=== PATIENT | female | born 1945 | race Caucasian/White ===

== ENCOUNTER 2017-08-01 15:28 | Observation (INO) | payer MEDICARE ==
[2017-08-01] MEDS ORDERED: SODIUM CHLORIDE 0.9% 500 ML IV STA (15:54)
[2017-08-01] MEDS ORDERED: ASPIRIN 81 MG PO STA (15:54)
--- NOTE | 2017-08-01 15:54 | ED ---
Arrhythmia/Palpitations HPI - General Chief Complaint: Arrhythmia/Palpitations Stated Complaint: Palpitations Time Seen by Provider: 08/01/17 15:45 Source: patient Mode of arrival: wheelchair Limitations: no limitations - History of Present Illness Initial Comments: Patient states that she is having the sensation of a pounding heart, as well as generalized fatigue. Her symptoms have been waxing and waning for a week and a half, however they are becoming more persistent. Patient denies any lightheadedness or dizziness, she does feel diaphoretic however. She has no nausea or vomiting, constipation or diarrhea. She has taken no medication for the symptoms. She was not doing anything when she began to feel this way. She has had no recent long plane or cards. She denies sick contacts. She has no pain or swelling in the calves. - Related Data Home Medications Medication Instructions Recorded Confirmed Albuterol Nebulized [Ventolin 2.5 mg INHALATION RT-DAILY 08/01/17 08/01/17 Nebulized] Ascorbic Acid [Vitamin C] 1,000 mg PO DAILY 08/01/17 08/01/17 Lactobacillus Acidophilus 2 tab PO DAILY 08/01/17 08/01/17 [Acidophilus] Diller-3 Fatty Acids/Fish Oil [Fish 1 cap PO DAILY 08/01/17 08/01/17 Oil 1,000 mg Softgel] Turmeric Root Extract [Turmeric] 500 mg PO DAILY 08/01/17 08/01/17 Vitamin B Complex 1 cap PO Q48H 08/01/17 08/01/17 Vitamin E 1,000 unit PO DAILY 08/01/17 08/01/17 Allergies Allergy/AdvReac Type Severity Reaction Status Date / Time ciprofloxacin [From Cipro] Allergy Anaphylaxis Verified 08/01/17 15:59 levofloxacin [From Levaquin] Allergy Anaphylaxis Verified 08/01/17 15:59 moxifloxacin [From Avelox] Allergy Unknown Verified 08/01/17 15:59 Penicillins Allergy Rash/Hives Verified 08/01/17 15:59 Review of Systems ROS Statement: Those systems with pertinent positive or pertinent negative responses have been documented in the HPI. ROS Other: All systems not noted in ROS Statement are negative. Past Medical History Additional Past Medical History / Comment(s): colon infection, diverticulitis. bronchiolosis History of Any Multi-Drug Resistant Organisms: None Reported Additional Past Surgical History / Comment(s): colon resection, prolapsed bladder, uterus, colon surgery Past Psychological History: No Psychological Hx Reported Smoking Status: Never smoker Past Alcohol Use History: Occasional Past Drug Use History: None Reported General Exam Limitations: no limitations General appearance: alert, in no apparent distress Head exam: Present: atraumatic, normocephalic, normal inspection Eye exam: Present: normal appearance, PERRL, EOMI. Absent: scleral icterus, conjunctival injection, periorbital swelling ENT exam: Present: normal exam, mucous membranes moist Neck exam: Present: normal inspection. Absent: tenderness, meningismus, lymphadenopathy Respiratory exam: Present: normal lung sounds bilaterally. Absent: respiratory distress, wheezes, rales, rhonchi, stridor Cardiovascular Exam: Present: regular rate, normal rhythm, normal heart sounds. Absent: systolic murmur, diastolic murmur, rubs, gallop, clicks GI/Abdominal exam: Present: soft, normal bowel sounds. Absent: distended, tenderness, guarding, rebound, rigid Extremities exam: Present: normal inspection, full ROM, normal capillary refill. Absent: tenderness, pedal edema, joint swelling, calf tenderness Back exam: Present: normal inspection Neurological exam: Present: alert, oriented X3, CN II-XII intact Psychiatric exam: Present: normal affect, normal mood Skin exam: Present: warm, dry, intact, normal color. Absent: rash Course Vital Signs 08/01/17 15:31 Temperature 98.1 F Pulse Rate 63 Respiratory 18 Rate Blood Pressure 182/77 O2 Sat by Pulse 100 Oximetry EKG Findings - EKG Comments: EKG Findings:: Twelve-lead EKG shows ventricular rate 65 bpm, normal WI interval and QRS complexes, no ST elevation, there is a very subtle ST depression in 2, 3, aVF. This is interpreted by me as normal sinus rhythm. Medical Decision Making - Medical Decision Making Patient is still symptomatic on reevaluation. She is not feeling much better. I am concerned this could be related to acute coronary syndrome. She will be admitted to the hospital. I will consult cardiology. - Lab Data Result diagrams: 08/01/17 16:00 08/01/17 16:00 Lab Results 08/01/17 08/01/17 08/01/17 Range/Units 16:00 16:00 16:00 WBC 9.9 (3.8-10.6) k/uL RBC 4.54 (3.80-5.40) m/uL Hgb 13.1 (11.4-16.0) gm/dL Hct 40.5 (34.0-46.0) % MCV 89.2 (80.0-100.0) fL MCH 29.0 (25.0-35.0) pg MCHC 32.4 (31.0-37.0) g/dL RDW 12.6 (11.5-15.5) % Plt Count 269 (150-450) k/uL Neutrophils % 69 % Lymphocytes % 21 % Monocytes % 5 % Eosinophils % 3 % Basophils % 1 % Neutrophils # 6.8 (1.3-7.7) k/uL Lymphocytes # 2.0 (1.0-4.8) k/uL Monocytes # 0.5 (0-1.0) k/uL Eosinophils # 0.3 (0-0.7) k/uL Basophils # 0.1 (0-0.2) k/uL PT 9.9 (9.0-12.0) sec INR 1.0 (<1.2) APTT 24.0 (22.0-30.0) sec Sodium 143 (137-145) mmol/L Potassium 4.0 (3.5-5.1) mmol/L Chloride 103 (98-107) mmol/L Carbon Dioxide 26 (22-30) mmol/L Anion Gap 14 mmol/L BUN 19 H (7-17) mg/dL Creatinine 0.80 (0.52-1.04) mg/dL Est GFR (CKD-EPI)AfAm 87 (>60 ml/min/1.73 sqM) Est GFR (CKD-EPI)NonAf 75 (>60 ml/min/1.73 sqM) Glucose 99 (74-99) mg/dL Calcium 10.0 (8.4-10.2) mg/dL Magnesium 2.0 (1.6-2.3) mg/dL Total Bilirubin 0.4 (0.2-1.3) mg/dL AST 26 (14-36) U/L ALT 32 (9-52) U/L Alkaline Phosphatase 61 (38-126) U/L Troponin I (0.000-0.034) ng/mL Total Protein 7.7 (6.3-8.2) g/dL Albumin 4.6 (3.5-5.0) g/dL TSH 2.310 (0.465-4.680) mIU/L 08/01/17 Range/Units 16:00 WBC (3.8-10.6) k/uL RBC (3.80-5.40) m/uL Hgb (11.4-16.0) gm/dL Hct (34.0-46.0) % MCV (80.0-100.0) fL MCH (25.0-35.0) pg MCHC (31.0-37.0) g/dL RDW (11.5-15.5) % Plt Count (150-450) k/uL Neutrophils % % Lymphocytes % % Monocytes % % Eosinophils % % Basophils % % Neutrophils # (1.3-7.7) k/uL Lymphocytes # (1.0-4.8) k/uL Monocytes # (0-1.0) k/uL Eosinophils # (0-0.7) k/uL Basophils # (0-0.2) k/uL PT (9.0-12.0) sec INR (<1.2) APTT (22.0-30.0) sec Sodium (137-145) mmol/L Potassium (3.5-5.1) mmol/L Chloride (98-107) mmol/L Carbon Dioxide (22-30) mmol/L Anion Gap mmol/L BUN (7-17) mg/dL Creatinine (0.52-1.04) mg/dL Est GFR (CKD-EPI)AfAm (>60 ml/min/1.73 sqM) Est GFR (CKD-EPI)NonAf (>60 ml/min/1.73 sqM) Glucose (74-99) mg/dL Calcium (8.4-10.2) mg/dL Magnesium (1.6-2.3) mg/dL Total Bilirubin (0.2-1.3) mg/dL AST (14-36) U/L ALT (9-52) U/L Alkaline Phosphatase (38-126) U/L Troponin I <0.012 (0.000-0.034) ng/mL Total Protein (6.3-8.2) g/dL Albumin (3.5-5.0) g/dL TSH (0.465-4.680) mIU/L Disposition Clinical Impression: Chest pain Disposition: ADMITTED IP TO THIS HOSP Condition: Fair Referrals: Chepe Golden MD [Primary Care Provider] - 1-2 days Time of Disposition: 17:38
[2017-08-01 16:25] LABS: Basophils # (A) 0.1 k/uL (0-0.2); Basophils % (A) 1 %; Eosinophils # (A) 0.3 k/uL (0-0.7); Eosinophils % (A) 3 %; HCT 40.5 % (34.0-46.0); HGB 13.1 gm/dL (11.4-16.0); Lymphocytes % (A) 21 %; MCHC 32.4 g/dL (31.0-37.0); MCV 89.2 fL (80.0-100.0); Mean Platelet Volume 7.3; Monocytes # (A) 0.5 k/uL (0-1.0); Monocytes % (A) 5 %; Neutrophils # (A) 6.8 k/uL (1.3-7.7); Neutrophils % (A) 69 %; Platelet Count 269 k/uL (150-450); RBC 4.54 m/uL (3.80-5.40); RDW 12.6 % (11.5-15.5); WBC 9.9 k/uL (3.8-10.6)
--- NOTE | 2017-08-01 16:28 | XR ---
EXAMINATION TYPE: XR chest 2V DATE OF EXAM: 08/01/2017 COMPARISON: NONE HISTORY: Dysrhythmia, chest pain and history of prior lung infection. TECHNIQUE: Frontal and lateral views of the chest are obtained. FINDINGS: There is no focal air space opacity, pleural effusion, or pneumothorax seen. The osseous s tructures are intact. Pulmonary hyperinflation and biapical lucency representing underlying COPD. The re is elongation of the cardiomediastinal silhouette without enlargement. There is diffuse osseous de mineralization. IMPRESSION: No acute cardiopulmonary process. Radiographic sequela of COPD.
[2017-08-01 16:34] LABS: Prothrombin Time 9.9 sec (9.0-12.0)
[2017-08-01 16:36] LABS: Albumin 4.6 g/dL (3.5-5.0); Total Bilirubin 0.4 mg/dL (0.2-1.3); Total Protein 7.7 g/dL (6.3-8.2)
[2017-08-01] MEDS ORDERED: ONDANSETRON 4 MG/2 ML VIAL IVP PRN (17:39)
[2017-08-01] MEDS ORDERED: traMADol 50 MG TAB PO PRN (17:39)
[2017-08-01] MEDS ORDERED: NALOXONE 0.4 MG/ML 1 ML VIAL IV PRN (17:39)
[2017-08-01] MEDS: FAMOTIDINE 20 MG TAB PO SCH (20:17)
[2017-08-01] MEDS ORDERED: TEMAZEPAM 15 MG CAP PO PRN (21:00)
--- NOTE | 2017-08-02 03:54 | HP ---
HISTORY AND PHYSICAL DATE OF SERVICE: 08/01/2017 CHIEF COMPLAINT: Palpitations. HISTORY OF PRESENT ILLNESS: This 72-year-old woman with a past medical history of multiple medical problems including diverticulosis, bronchiectasis, history of Pseudomonas infection, history of nicotine dependence, being followed by Dr. Chepe Golden in the outpatient setting, was complaining of palpitation for the last several days. The palpitation was waxing and waning. Patient also complaining of fatigue and because of increasing difficulties, the patient was feeling chest pounding and because there is no active chest pain, the patient came to [facility] admitted for further evaluation treatment. The initial EKG on admission showed normal sinus rhythm and nonspecific ST-T changes symptoms and some U waves were noted. Otherwise chest x-ray was also done which showed no acute pulmonary abnormality. The basic blood work was also within normal limits. The patient admitted for further evaluation and treatment. There is no history of fever, rigors. No history of headache, loss of consciousness, or seizures. PAST MEDICAL HISTORY: Previous history of stress test, history of colon infection, diverticulosis, bronchiectasis, Pseudomonas, history of nicotine dependence. MEDICATIONS: Prior to admission include: 1. Vitamin E 1000 mg Q 48h. 2. Vitamin B complex. 3. Turmeric root 500 mg daily. 4. Fish oil. 5. Lactobacillus acidophilus. 6. Vitamin C 1000 mg daily. 7. Ventolin 2.5 daily. ALLERGIES: CIPRO, LEVAQUIN, AMOXICILLIN, PENICILLIN. FAMILY HISTORY: History of cancer, hypertension, colon cancer in the family. SOCIAL HISTORY: Previous history of smoking, no history of current smoking or alcohol intake. REVIEW OF SYSTEMS: ENT: No diminished vision. No diminished hearing. Cardiovascular system: As mentioned earlier. Respiratory: As mentioned earlier. GI no nausea or vomiting. : No dysuria. NERVOUS SYSTEM: No numbness or weakness. Allergy/Immunology: No numbness or weakness. Musculoskeletal as mentioned earlier. HEMATOLOGY/ONCOLOGY: No history of anemia. ENDOCRINE: No history of diabetes or hypothyroidism. CONSTITUTIONAL: As mentioned earlier. Dermatology: Negative. Rheumatology: As mentioned earlier. Psychiatric: As mentioned earlier. PHYSICAL EXAM: Patient is alert, oriented x three. Pulse is 53, blood pressure 136/74, respiration 15, temperature 97.4, pulse ox 97% on room air. HEENT conjunctivae normal. Oral mucosa moist. Neck is no jugular venous distention. No carotid bruit. No lymph node enlargement. Cardiovascular system: S1, S2, no S3, no S4. Respiratory: Breath sounds diminished in the bases. No rhonchi. No crackles. ABDOMEN: Soft, nontender. No mass palpable. Legs: No edema and no swelling. NERVOUS SYSTEM: Higher functions as mentioned earlier. Moves all four limbs. No focal deficits. Lymphatics: No lymph nodes palpable in the neck, axillae or groin. SKIN: No ulcer, rash or bleeding. LABS: CBC and BMP within normal limits. Troponins are negative. ASSESSMENT: 1. Palpitations for evaluation. Rule out coronary artery disease. 2. History of diverticulosis. 3. History of bronchiectasis. 4. History of Pseudomonas infection. 5. Remote history of nicotine dependence. RECOMMENDATIONS AND DISCUSSION: In this 72-year-old woman who presented with multiple complex medical issues, we will monitor the patient closely. Continue the current medications, management and symptomatic treatment. Otherwise at this time I recommend resume the home medications. Rule out myocardial infarction. Cardiology consultation. 2D echo with Doppler in the morning. Otherwise I would also recommend a D-dimer and if it is positive a CT angio also. Other than that we will continue to monitor. Further recommendations to follow. A copy for Dr. Chepe Golden who is the primary physician. MMSRUTHIL / IJN: [id number] /
[2017-08-02] MEDS ORDERED: ALBUTEROL NEBULIZED 2.5 MG/3 ML INHALATION SCH (08:00)
--- NOTE | 2017-08-02 08:40 | P.CRDCN ---
History of Present Illness Consult date: 08/02/17 History of present illness: This is a 72-year-old female with history of bronchiectasis and a previous history of smoking, comes to the hospital because of her recurrent episodes of palpitations. She has been having these palpitations for the last 2 years. Initially, she was feeling those palpitation at night and she was laying on her left side. But recently these palpitations have been happening at random. He is really the palpitations last about 5 beats to 10 minutes. However, following those episodes, patient feels exhausted. Since admission here patient is noted to have occasional PVCs with underlying sinus bradycardia. She denies any chest pain, dizziness or syncopal episodes. Her cardiac enzymes are negative. Patient had an echocardiogram done today. If that is normal, patient could be discharged home to have an outpatient event monitor and further follow-up. No family history of any significant ischemic heart disease. Patient never had any history of previous angina or myocardial infarction. Past Medical History Additional Past Medical History / Comment(s): colon infection, diverticulitis, bronchiectesis, psuedomonis History of Any Multi-Drug Resistant Organisms: None Reported Additional Past Surgical History / Comment(s): colon resection, prolapsed bladder, uterus, colon surgery Past Anesthesia/Blood Transfusion Reactions: No Reported Reaction Past Psychological History: No Psychological Hx Reported Smoking Status: Former smoker Past Alcohol Use History: Occasional Past Drug Use History: None Reported - Past Family History Mother Family Medical History: Cancer, Hypertension Additional Family Medical History / Comment(s): colon cancer Father Family Medical History: Congestive Heart Failure (CHF) Sister(s) Family Medical History: Hypertension Additional Family Medical History / Comment(s): RA Son(s) Family Medical History: No Reported History Daughter(s) Family Medical History: No Reported History Medications and Allergies Home Medications Medication Instructions Recorded Confirmed Type Albuterol Nebulized [Ventolin 2.5 mg INHALATION RT-DAILY 08/01/17 08/01/17 History Nebulized] Ascorbic Acid [Vitamin C] 1,000 mg PO Q48H 08/01/17 08/01/17 History Lactobacillus Acidophilus 2 tab PO DAILY 08/01/17 08/01/17 History [Acidophilus] Clemons-3 Fatty Acids/Fish Oil [Fish 1 cap PO DAILY 08/01/17 08/01/17 History Oil 1,000 mg Softgel] Turmeric Root Extract [Turmeric] 500 mg PO DAILY 08/01/17 08/01/17 History Vitamin B Complex 1 cap PO Q48H 08/01/17 08/01/17 History Vitamin E 1,000 unit PO Q48H 08/01/17 08/01/17 History Allergies Allergy/AdvReac Type Severity Reaction Status Date / Time ciprofloxacin [From Cipro] Allergy Anaphylaxis Verified 08/01/17 19:40 levofloxacin [From Levaquin] Allergy Anaphylaxis Verified 08/01/17 19:40 moxifloxacin [From Avelox] Allergy Unknown Verified 08/01/17 19:40 Penicillins Allergy Rash/Hives Verified 08/01/17 19:40 Physical Exam Vitals: Vital Signs Temp Pulse Pulse Pulse Pulse Resp BP 08/02/17 04:00 97.6 F 95 15 08/02/17 03:04 15 08/02/17 00:00 15 08/01/17 23:47 97.6 F 53 L 15 08/01/17 19:58 16 08/01/17 19:08 98.0 F 68 16 08/01/17 18:17 97.7 F 68 18 150/71 08/01/17 17:00 78 08/01/17 15:31 98.1 F 63 18 182/77 BP Pulse Ox 08/02/17 04:00 134/61 97 08/02/17 03:04 08/02/17 00:00 08/01/17 23:47 136/75 97 08/01/17 19:58 08/01/17 19:08 139/63 95 08/01/17 18:17 100 08/01/17 17:00 08/01/17 15:31 100 Intake and Output 08/01/17 08/02/17 08/02/17 22:59 06:59 14:59 Other: Voiding Method Toilet Toilet # Voids 2 Weight 59.3 kg GENERAL EXAM: Patient is alert and oriented and doesn't appear to be in any acute distress HEENT: Normocephalic. Normal reaction of pupils, equal size, normal range of extraocular motion. No erythema or exudates in the throat. NECK: No masses, no nuchal rigidity. CHEST: No chest wall deformity. LUNGS: Equal air entry with no crackles or wheeze. HEART: S1 and S2 normal with no audible mumurs or gallops. Regular rhythm, femorals equal on both sides.. ABDOMEN: No hepatosplenomegaly, normal bowel sounds, no guarding or rigidity. SKIN: No rashes CENTRAL NERVOUS SYSTEM: No focal deficits. EXTREMITIES: No cyanosis, clubbing or edema. Results 08/01/17 16:00 08/01/17 16:00 Cardiac Enzymes 08/01/17 08/01/17 08/01/17 Range/Units 16:00 16:00 21:53 AST 26 (14-36) U/L Troponin I <0.012 <0.012 (0.000-0.034) ng/mL 08/02/17 Range/Units 03:32 AST (14-36) U/L Troponin I <0.012 (0.000-0.034) ng/mL Coagulation 08/01/17 Range/Units 16:00 PT 9.9 (9.0-12.0) sec APTT 24.0 (22.0-30.0) sec CBC 08/01/17 Range/Units 16:00 WBC 9.9 (3.8-10.6) k/uL RBC 4.54 (3.80-5.40) m/uL Hgb 13.1 (11.4-16.0) gm/dL Hct 40.5 (34.0-46.0) % Plt Count 269 (150-450) k/uL Comprehensive Metabolic Panel 08/01/17 Range/Units 16:00 Sodium 143 (137-145) mmol/L Potassium 4.0 (3.5-5.1) mmol/L Chloride 103 (98-107) mmol/L Carbon Dioxide 26 (22-30) mmol/L BUN 19 H (7-17) mg/dL Creatinine 0.80 (0.52-1.04) mg/dL Glucose 99 (74-99) mg/dL Calcium 10.0 (8.4-10.2) mg/dL AST 26 (14-36) U/L ALT 32 (9-52) U/L Alkaline Phosphatase 61 (38-126) U/L Total Protein 7.7 (6.3-8.2) g/dL Albumin 4.6 (3.5-5.0) g/dL Current Medications Generic Name Dose Route Start Last Admin Trade Name Freq PRN Reason Stop Dose Admin Albuterol Sulfate 2.5 mg 08/02/17 08:00 Ventolin Nebulized INHALATION RT-DAILY JONY Famotidine 20 mg 08/01/17 21:00 08/01/17 20:17 Pepcid PO Not Given BID JONY Naloxone HCl 0.2 mg 08/01/17 17:39 Narcan IV Q2M PRN Opioid Reversal Ondansetron HCl 4 mg 08/01/17 17:39 Zofran IVP Q8HR PRN Nausea And Vomiting Temazepam 15 mg 08/01/17 21:00 Restoril PO HS PRN Insomnia Tramadol HCl 50 mg 08/01/17 17:39 Ultram PO Q6H PRN Moderate Pain Intake and Output 08/01/17 08/02/17 08/02/17 22:59 06:59 14:59 Other: Voiding Method Toilet Toilet # Voids 2 Weight 59.3 kg 08/01/17 16:00 08/01/17 16:00 EKG Interpretations (text) Sinus rhythm with occasional PVCs Assessment and Plan (1) Palpitations Current Visit: Yes Status: Acute Code(s): R00.2 - PALPITATIONS SNOMED Code (s): 94943292 (2) PVC (premature ventricular contraction) Current Visit: Yes Status: Acute Code(s): I49.3 - VENTRICULAR PREMATURE DEPOLARIZATION SNOMED Code(s): 42432567 (3) History of bronchiectasis Current Visit: Yes Status: Acute Code(s): Z87.09 - PERSONAL HISTORY OF OTHER DISEASES OF THE RESPIRATORY SYSTEM SNOMED Code(s): 432091753 Plan: Patient is clinically stable without any significant symptoms since admission. Occasional PVCs are noted. Cardiac enzymes are negative. If the echo is normal , patient could be discharged home. She will be recommended to have outpatient event monitor. Follow-up in the office after the monitor.
[2017-08-02] MEDS: FAMOTIDINE 20 MG TAB PO SCH (09:35)
[2017-08-02 12:12] VITALS: BP 168/74; RESP 16; TEMP 97.5
[2017-08-02 12:24] VITALS: PULSE 95
--- NOTE | 2017-08-02 13:37 | ECHOF ---
Referral Reason:chest pain MEASUREMENTS -------- HEIGHT: 170.2 cm WEIGHT: 59.0 kg BP: 134/61 RVIDd: 2.9 cm (< 3.3) IVSd: 0.8 cm (0.6 - 1.1) LVIDd: 4.9 cm (3.9 - 5.3) LVPWd: 0.9 cm (0.6 - 1.1) IVSs: 1.3 cm LVIDs: 3.3 cm LVPWs: 1.4 cm LA Diam: 3.6 cm (2.7 - 3.8) LAESV Index (A-L): 30.34 ml/m Ao Diam: 2.7 cm (2.0 - 3.7) AV Cusp: 1.9 cm (1.5 - 2.6) MV EXCURSION: 18.330 mm (> 18.000) MV EF SLOPE: 106 mm/s (70 - 150) EPSS: 1.0 cm RAP: 5.00 mmHg RVSP: 24.94 mmHg FINDINGS -------- Resting bradycardia (HR<60bpm). This was a technically good study. The left ventricular size is normal. Left ventricular wall thickness is normal. Overall left vent ricular systolic function is low-normal with, an EF between 50 - 55 %. Basal anterior LV wall motio n is ATYPICAL The right ventricle is normal in size. LA is midly dilated 29-33ml/m2. The right atrium is normal in size. Aortic valve is trileaflet and is mildly thickened. Trace to mild aortic regurgitation. The mitral valve leaflets are mildly thickened. Mild mitral annular calcification present. Mild m itral regurgitation is present. Mild tricuspid regurgitation present. Right ventricular systolic pressure is normal at < 35 mmHg. Trace/mild (physiologic) pulmonic regurgitation. The aortic root size is normal. Normal inferior vena cava with normal inspiratory collapse consistent with estimated right atrial pre ssure of 5 mmHg. There is no pericardial effusion. CONCLUSIONS -------- 1. Resting bradycardia (HR<60bpm). 2. This was a technically good study. 3. The left ventricular size is normal. 4. Left ventricular wall thickness is normal. 5. The right ventricle is normal in size. 6. LA is midly dilated 29-33ml/m2. 7. The right atrium is normal in size. 8. Aortic valve is trileaflet and is mildly thickened. 9. Trace to mild aortic regurgitation. 10. The mitral valve leaflets are mildly thickened. 11. Mild mitral annular calcification present. 12. Mild mitral regurgitation is present. 13. Mild tricuspid regurgitation present. 14. Right ventricular systolic pressure is normal at < 35 mmHg. 15. Trace/mild (physiologic) pulmonic regurgitation. 16. The aortic root size is normal. 17. Normal inferior vena cava with normal inspiratory collapse consistent with estimated right atrial pressure of 5 mmHg. 18. There is no pericardial effusion. FIELD SALES AGENT: Daksha Major RDCS
--- NOTE | 2017-08-02 22:13 | DS ---
DISCHARGE SUMMARY FINAL DIAGNOSES: 1. Palpitations of undetermined etiology. Rule out coronary disease. 2. History of diverticulosis. 3. History of bronchiectasis. 4. History of Pseudomonas infection. 5. Remote history of nicotine dependence. DISCHARGE DISPOSITION: The patient is being discharged in stable condition with guarded prognosis. Cardiology cleared the patient for discharge. HISTORY OF PRESENT ILLNESS: This 72-year-old woman admitted with more palpitations, possible exercise induced and the patient had some nonspecific ST-T changes. Otherwise the troponins are negative. Cardiology saw the patient. Recommended outpatient followup and workup. On exam, vital signs stable. Cardiovascular: S1, S2. Abdomen soft. Central nervous system: No focal deficits. DISCHARGE ADVICE AND MEDICATIONS: 1. Diet is cardiac diet. 2. Activity limited until followup. 3. Follow up with Dr. Golden in 1-2 days. 4. Follow up with cardiology as advised. MEDICATIONS ARE: As follows: 1. Ventolin 2.5 q.i.d. and p.r.n. 2. Vitamin C 5000 mg q.4h. 3. Lactobacillus 2 tablets daily. 4. Roosevelt-3 fatty acids 1 daily. 5. Tumeric 500 mg mg p.o. daily. 6. Vitamin B complex 1 p.o. q.48h hours. 7. Vitamin E 1000 units p.o. daily. MMODL / IJN: [id number] /
== END 2017-08-02 14:32 | disposition home or self-care (01) ==
LOC: EC 15:28 → 3OBS 17:41
PROVIDERS: ADMIT Hospitalist; ATTEND Hospitalist
DX: R00.2 Palpitations (principal); R61 Generalized hyperhidrosis; I49.3 Ventricular premature depolarization; R07.89 Other chest pain; R53.83 Other fatigue; K57.90 Diverticulosis of intestine, part unspecified, without perforation or abscess without bleeding; Z87.891 Personal history of nicotine dependence; Z87.09 Personal history of other diseases of the respiratory system; Z86.19 Personal history of other infectious and parasitic diseases; Z88.0 Allergy status to penicillin; Z88.1 Allergy status to other antibiotic agents; Z79.899 Other long term (current) drug therapy; Z82.49 Family history of ischemic heart disease and other diseases of the circulatory system; Z82.61 Family history of arthritis; Z80.0 Family history of malignant neoplasm of digestive organs
CPT/HCPCS: 36415; 71046; 80053; 83735; 84443; 84484; 85025; 85379; 85610; 85730; 93005; 93306; 96360; 99285

== ENCOUNTER → 2018-07-27 | Outpatient (CLI) | payer MEDICARE ==
--- NOTE | 2018-07-27 13:15 | BD ---
EXAMINATION TYPE: Axial Bone Density DATE OF EXAM: 07/27/2018 COMPARISON: 12.29.2015 CLINICAL HISTORY: 73 YR OLD FEMALE...ICD-10 CODE: M81.8 OTHER OSTEOPOROSIS Height: 66.8 Weight: 124 FRAX RISK QUESTIONS: NOTHING TO NOTE HERE RISK FACTORS HISTORY OF: Family History of Osteoporosis: YES, HER MOTHER, NO HIP FX, FATHER BROKE HIP THOUGH Active: YES Postmenopausal woman: YES AT AGE 56 MEDICATIONS: Prednisone or other steroids: NOT ON REGULAR BASIS, Osteoporosis Medications: Which medication: FOSAMAX IN THE PAST 12 YRS AGO Additional Medications: MAGNESIUM, CALCIUM, VIT D, Additional History: NOTHING TO NOTE HERE EXAM MEASUREMENTS: Bone mineral densitometry was performed using the [employer] System. Bone mineral density as measured about the Lumbar spine is: ----- L1-L4(G/cm2): 0.752 T Score Values are as follows: ----- L1: -3.5 ----- L2: -3.9 ----- L3: -3.8 ----- L4: -3.3 ----- L1-L4: -3.6 Bone mineral density has: Decreased -4.1% since study of: 12.29.2015 Bone mineral density about the R hip (g/cm2): 0.691 Bone mineral density about the L hip (g/cm2): 0.646 T Score values are as follows: -----R Neck: -2.7 -----L Neck: -2.9 -----R Total: -2.5 -----L Total: -2.9 Bone mineral density has: Decreased -3.9% since study of: 12.29.2015 FRAX%s: THERE IS A 27.7% CHANCE FOR A MAJOR OSTEOPOROTIC FX AND A 14.5% FOR HIP.....PROBABILITY OF FX IN 10 YRS TIME IMPRESSION: Osteoporosis NOTE: T-SCORE=SD OF THE YOUNG ADULT MEAN.
--- NOTE | 2018-07-28 14:10 | MM ---
Reason for exam: screening (asymptomatic). Last mammogram was performed 2 years and 7 months ago. History: Patient is postmenopausal and had first child at age 34. Family history of breast cancer in maternal cousin. Physical Findings: A clinical breast exam by your physician is recommended on an annual basis and results should be correlated with mammographic findings. MG 3D Screening Mammo W/Cad Bilateral CC and MLO view(s) were taken. Prior study comparison: December 29, 2015, bilateral MG 3d screening mammo w/cad. July 06, 2013, bilateral digital screening mammo w/CAD. The breast tissue is heterogeneously dense. This may lower the sensitivity of mammography. No significant changes when compared with prior studies. ASSESSMENT: Benign, BI-RAD 2 RECOMMENDATION: Routine screening mammogram of both breasts in 1 year.
== END | disposition home or self-care (01) ==
LOC: RADMAMWWP 10:12
PROVIDERS: ATTEND Family Medicine
DX: Z12.31 Encounter for screening mammogram for malignant neoplasm of breast (principal); M81.0 Age-related osteoporosis without current pathological fracture
CPT/HCPCS: 77063; 77067; 77080

== ENCOUNTER → 2020-09-07 | Outpatient (CLI) | payer MEDICARE ==
--- NOTE | 2020-09-08 12:41 | MM ---
Reason for exam: screening (asymptomatic). Last mammogram was performed 2 years and 1 month ago. History: Patient is postmenopausal and had first child at age 34. Family history of breast cancer in maternal cousin. Physical Findings: A clinical breast exam by your physician is recommended on an annual basis and results should be correlated with mammographic findings. MG 3D Screening Mammo W/Cad Bilateral CC and MLO view(s) were taken. Prior study comparison: July 27, 2018, bilateral MG 3d screening mammo w/cad. December 29, 2015, bilateral MG 3d screening mammo w/cad. There are scattered fibroglandular densities. ASSESSMENT: Negative, BI-RAD 1 RECOMMENDATION: Routine screening mammogram of both breasts in 1 year.
--- NOTE | 2020-09-09 06:29 | BD ---
EXAMINATION TYPE: Axial Bone Density DATE OF EXAM: 09/07/2020 COMPARISON: 07.27.2018 CLINICAL HISTORY: 75 YR OLD FEMALE.....ICD-10 CODE: M81.0 KNOWN OSTEOPOROSIS Height: 66.5 Weight: 121 FRAX RISK QUESTIONS: Family History (Parent hip fracture): YES Glucocorticoids (More than 3mos): YES (Ex: prednisone, prednisolone, methylprednisolone, dexamethasone, and hydrocortisone). RISK FACTORS HISTORY OF: HX OF FRACTURES CHILD ONLY.... Family History of Osteoporosis: YES, HER MOTHER AND FATHER, WITH HIP FXS Postmenopausal woman: YES, AT ABOUT 50 YRS OLD Hyperparathyroidism: NO Adrenal Insufficiency: NO MEDICATIONS: Prednisone or other steroids: YES, FOR ASTHMA, LUNG DISEASE, PSUDOMOS., WHOOPING COUGH IN PAST Osteoporosis Medications: FOSAMAX IN THE PAST ONLY, HAS NOT TAKEN FOR ABOUT 14 YRS, Additional Medications: VIT D, OFF FOR ABOUT 1 MONTH, Additional History: LUNG CONDITION, EXAM MEASUREMENTS: Bone mineral densitometry was performed using the Gliph System. Bone mineral density as measured about the Lumbar spine is: ----- L1-L4(G/cm2): 0.775 T Score Values are as follows: ----- L1: -3.2 ----- L2: -3.9 ----- L3: -3.5 ----- L4: -3.0 ----- L1-L4: -3.4 Bone mineral density has: Increased 2.9% since study of: 07.27.2018 Bone mineral density about the R hip (g/cm2): 0.664 Bone mineral density about the L hip (g/cm2): 0.635 T Score values are as follows: -----R Neck: -2.8 -----L Neck: -3.0 -----R Total: -2.7 -----L Total: -3.0 Bone mineral density has: Decreased -2.8% since study of: 07.27.2018 FRAX%s: THERE IS A 48.3% CHANCE FOR A MAJOR OSTEOPOROTIC FX AND A 36.0% FOR HIP......PROBABILITY FOR FX IN 10 YRS TIME IMPRESSION: Osteoporosis (T Score less than -2.5) remains present. There remains increased fracture risk and therapy is usually indicated based on age. Re-Screen 1-2 years. NOTE: T-SCORE=SD OF THE YOUNG ADULT MEAN.
== END | disposition home or self-care (01) ==
LOC: RADBDWWP 13:10
PROVIDERS: ATTEND Family Medicine
DX: Z12.31 Encounter for screening mammogram for malignant neoplasm of breast (principal); Z78.0 Asymptomatic menopausal state; Z80.3 Family history of malignant neoplasm of breast
CPT/HCPCS: 77063; 77067; 77080

== ENCOUNTER 2020-11-01 09:12 | Day surgery (SDC) | payer MEDICARE ==
[2020-10-30 11:40] VITALS: BMI 19.5
[~2020-11-01 09:12] MED LIST: LACTATED RINGERS 1,000 ML IV SCH
[2020-11-01 09:52] VITALS: TEMP 96.4
[2020-11-01] MEDS ORDERED: LIDOCAINE 1% INJ 10MG/ML (20 ML MDV) ONE (10:20)
[2020-11-01] MEDS ORDERED: PROPOFOL 10 MG/ML 20 ML VIAL IV ONE (10:20)
--- NOTE | 2020-11-01 10:36 | P.PCN ---
Date of Procedure: 11/01/20 Procedure(s) Performed: BRIEF HISTORY: Patient is a 75-year-old pleasant white female scheduled for an elective colonoscopy as a part of evaluation of intermittent left lower quadrant abdominal pain for the last few months duration. She had history of sigmoid resection secondary to diverticular disease in 2009. PROCEDURE PERFORMED: Colonoscopy. PREOPERATIVE DIAGNOSIS: Left lower quadrant abdominal pain of several months duration. IV sedation per Anesthesia. PROCEDURE: After informed consent was obtained, the patient, was brought into the endoscopy unit. IV sedation was administered by Anesthesia under continuous monitoring. Digital rectal examination was normal. Initially the Olympus CF-160 flexible video colonoscope was then inserted in the rectum, gradually advanced into the cecum without any difficulty. Careful examination was performed as the scope was gradually being withdrawn. Ileocecal valve and the appendiceal orifice were visualized and appeared normal. Prep was excellent. Mucosa of the cecum, ascending colon, transverse colon, descending colon, sigmoid colon, and rectum a ppeared normal. At her left-sided diverticulosis seen. Retroflexion was performed in the rectum and no lesions were seen. The patient tolerated the procedure well. IMPRESSION: Normal-appearing colon from rectum to cecum no evidence of colitis or colorectal neoplasia Scattered sigmoid diverticulosis. . RECOMMENDATIONS: Findings of this examination were discussed with the patient as well as her family. She was advised to be a high-fiber diet and take fiber supplements a regular basis. She can have a repeat screening colonoscopy in 10 years .
[2020-11-01 11:03] VITALS: BP 127/72; PULSE 60; RESP 16
== END 2020-11-01 11:11 | disposition home or self-care (01) ==
LOC: ORWHC2ENDO 09:12
PROVIDERS: ATTEND Internal Medicine Gastroenterology
DX: K57.30 Diverticulosis of large intestine without perforation or abscess without bleeding (principal); M79.7 Fibromyalgia; Z79.51 Long term (current) use of inhaled steroids; Z87.891 Personal history of nicotine dependence
CPT/HCPCS: 45378; J2001; J2704

== ENCOUNTER → 2020-12-15 | Outpatient (CLI) | payer MEDICARE ==
[2020-12-15 15:16] LABS: Basophils # (A) 0.06 X 10*3/uL (0.00-0.10); Basophils % (A) 0.8 %; Eosinophils # (A) 0.18 X 10*3/uL (0.04-0.35); Eosinophils % (A) 2.4 %; HCT 39.8 % (37.2-46.3); HGB 12.7 g/dL (12.0-15.0); Lymphocytes # (A) 1.99 X 10*3/uL (0.90-5.00); Lymphocytes % (A) 26.6 %; MCHC 31.9 g/dL (32.0-37.0); MCV 94.1 fL (80.0-97.0); Mean Platelet Volume 10.5 fL (9.5-12.2); Neutrophils # (A) 4.63 X 10*3/uL (1.80-7.70); Neutrophils % (A) 61.8 %; Platelet Count 267 X 10*3/uL (140-440); RBC 4.23 X 10*6/uL (4.10-5.20); RDW 12.9 % (11.5-14.5); WBC 7.49 X 10*3/uL (4.50-10.00)
[2020-12-15 19:24] LABS: African American GFR (CKD) 84.8 (60.0-200.0); Albumin 4.3 g/dL (3.80-4.90); Albumin/Globulin Ratio 1.59 (1.60-3.17); Anion Gap 9.4 mmol/L (4.00-12.00); Calcium 9.5 mg/dL (8.7-10.3); Carbon Dioxide 27.6 mmol/L (21.6-31.8); Chol/HDL Ratio 2.69; Globulin 2.7 g/dL (1.6-3.3); LDL Cholesterol,Calculated 144.2 mg/dL (0.0-131.0); Non-African American GFR(CKD) 73.1 (60.0-200.0); Potassium 4.3 mmol/L (3.5-5.5); Total Bilirubin 0.7 mg/dL (0.2-1.2); VLDL Calculation 12.8 mg/dL (5.00-40.00)
== END | disposition home or self-care (01) ==
LOC: LABWHC1 07:55
PROVIDERS: ATTEND Family Medicine
DX: Z00.00 Encounter for general adult medical examination without abnormal findings (principal); E55.9 Vitamin D deficiency, unspecified; N18.2 Chronic kidney disease, stage 2 (mild); E78.00 Pure hypercholesterolemia, unspecified
CPT/HCPCS: 36415; 80053; 80061; 82306; 85025

== ENCOUNTER → 2021-12-28 | Outpatient (CLI) | payer MEDICARE ==
[2021-12-28 14:23] LABS: HGB 13.2 g/dL (12.0-15.0); MCH 29.3 pg (27.0-32.0); MCHC 32.2 g/dL (32.0-37.0); MCV 91.1 fL (80.0-97.0); Mean Platelet Volume 10.3 fL (9.5-12.2); NRBC Per 100 WBC 0 /100 WBCS (0.0-0.0); Platelet Count 275 X 10*3/uL (140-440); RDW 12.7 % (11.5-14.5); WBC 7.98 X 10*3/uL (4.50-10.00)
[2021-12-28 14:50] LABS: ALT 17 U/L (8-44); AST 21 U/L (13-35); African American GFR (CKD) 84.2 (60.0-200.0); Albumin 4.4 g/dL (3.8-4.9); Albumin/Globulin Ratio 1.47 (1.60-3.17); Alkaline Phosphatase 63 U/L (41-126); BUN/Creat Ratio 20.38 Ratio (12.00-20.00); Blood Urea Nitrogen 16.3 mg/dL (9.0-27.0); Calcium 9.4 mg/dL (8.7-10.3); Carbon Dioxide 26.5 mmol/L (20.0-27.5); Chloride 103 mmol/L (96-109); Chol/HDL Ratio 2.85 Ratio; Glucose 83 mg/dL (70-110); LDL Cholesterol,Calculated 148.2 mg/dL (0.0-131.0); Non-African American GFR(CKD) 72.6 (60.0-200.0); Sodium 139 mmol/L (135-145); Total Protein 7.4 g/dL (6.2-8.2)
== END | disposition home or self-care (01) ==
LOC: LABWHC1 08:30
PROVIDERS: ATTEND Family Medicine
DX: Z00.00 Encounter for general adult medical examination without abnormal findings (principal)
CPT/HCPCS: 36415; 80053; 80061; 82306; 85027

== ENCOUNTER 2022-11-18 18:59 | Emergency (ER) | payer MEDICARE ==
[2022-11-18 19:11] VITALS: RESP 18; TEMP 98.1
--- NOTE | 2022-11-18 19:35 | ED ---
Animal Bite HPI - General Chief Complaint: Animal Bite Stated Complaint: dog bite Time Seen by Provider: 11/18/22 19:34 Source: patient, RN notes reviewed Mode of arrival: ambulatory - History of Present Illness Initial Comments: Patient is a 77-year-old female who presents to the emergency department for dog bite. Vaccination status of dog is unknown. Patient is 77-year-old female who presents to the emergency department for dog bite. Patient was eating on the sidewalk at [employer] when a dog escaped its collar and that her and her right buttock. Vaccination status is unknown. Patient has mild pain in the right buttock no radiation. No numbness or tingling. Tetanus is not up-to-date. - Related Data Home Medications Medication Instructions Recorded Confirmed Lactobacillus Acidophilus 2 tab PO DAILY 08/01/17 11/01/20 [Acidophilus] [place]aside-3 Fatty Acids/Fish Oil [Fish 1 cap PO DAILY 08/01/17 11/01/20 Oil 1,000 mg Softgel] Turmeric Root Extract [Turmeric] 500 mg PO DAILY 08/01/17 11/01/20 Vitamin B Complex 1 cap PO TUFR 08/01/17 11/01/20 Adp 1 tab PO DAILY 10/30/20 11/01/20 Calcium/Magnesium/Zinc 1 each PO DAILY 10/30/20 11/01/20 [Osdyhmg-Xerdcnugb-Ztvn Tablet] Cranberry Fruit Extract [Cranberry] 500 mg PO TUTH 10/30/20 11/01/20 Tarik 1 tab PO DAILY 10/30/20 11/01/20 Healthy Bones 1 tab PO DAILY 10/30/20 11/01/20 Lung Formula 1 tab PO DAILY 10/30/20 11/01/20 Lung Revive 1 tab PO DAILY 10/30/20 11/01/20 Lysine 500 mg PO DAILY 10/30/20 11/01/20 Magnesium 250 mg PO DAILY 10/30/20 11/01/20 Taurine 1 tab PO DAILY 10/30/20 11/01/20 Thiamine [Vitamin B-1] 50 mg PO DAILY 10/30/20 11/01/20 Tri-Chol 1 tab PO DAILY 10/30/20 11/01/20 Previous Rx's Medication Instructions Recorded Doxycycline [Vibramycin] 100 mg PO BID #28 cap 11/18/22 Allergies Allergy/AdvReac Type Severity Reaction Status Date / Time adhesive Allergy Rash/Hives Verified 11/18/22 19:07 ciprofloxacin [From Cipro] Allergy Anaphylaxis Verified 11/18/22 19:07 levofloxacin [From Levaquin] Allergy Anaphylaxis Verified 11/18/22 19:07 moxifloxacin [From Avelox] Allergy Unknown Verified 11/18/22 19:07 Penicillins Allergy Rash/Hives Verified 11/18/22 19:07 albuterol AdvReac Rapid Verified 11/18/22 19:07 Heart Rate morphine AdvReac Nausea & Verified 11/18/22 19:07 Vomiting Review of Systems ROS Statement: Those systems with pertinent positive or pertinent negative responses have been documented in the HPI. ROS Other: All systems not noted in ROS Statement are negative. Past Medical History Past Medical History: Fibromyalgia Additional Past Medical History / Comment(s): hx. diverticulitis, bronchiectesis, pseudomonas aeruginosa, osteoporosis History of Any Multi-Drug Resistant Organisms: None Reported Past Surgical History: Bladder Surgery, Bowel Resection Additional Past Surgical History / Comment(s): bladder suspension, colonoscopy Past Anesthesia/Blood Transfusion Reactions: No Reported Reaction Past Psychological History: No Psychological Hx Reported Smoking Status: Former smoker Past Alcohol Use History: None Reported Past Drug Use History: None Reported - Past Family History Mother Family Medical History: Cancer, Hypertension Additional Family Medical History / Comment(s): colon cancer Father Family Medical History: Congestive Heart Failure (CHF) Sister(s) Family Medical History: Hypertension Additional Family Medical History / Comment(s): RA Son(s) Family Medical History: No Reported History Daughter(s) Family Medical History: No Reported History General Exam - General Exam Comments Initial Comments: Visual Physical Exam Vital signs reviewed General: Well-appearing, nontoxic, no acute distress. Head: Normocephalic, atraumatic Eyes: PERRLA, EOMI ENT: Airway patent Chest: Nonlabored breathing Skin: No visual rash, normal skin tone Neuro: Alert and oriented 3 Musculoskeletal: No gross abnormalities General appearance: alert Eye exam: Present: normal appearance, PERRL, EOMI. Absent: scleral icterus, conjunctival injection, periorbital swelling Respiratory exam: Present: normal lung sounds bilaterally. Absent: respiratory distress, wheezes, rales, rhonchi, stridor Cardiovascular Exam: Present: regular rate, normal rhythm, normal heart sounds. Absent: systolic murmur, diastolic murmur, rubs, gallop, clicks Extremities exam: Present: normal inspection, full ROM, normal capillary refill Neurological exam: Present: alert Psychiatric exam: Present: normal affect, normal mood Skin exam: Present: warm, dry, intact, normal color, other (2 1 cm puncture wounds right buttock with mild ecchymosis. Non bleeding). Absent: rash Course Vital Signs 11/18/22 11/18/22 19:07 21:21 Temperature 98.1 F Pulse Rate 78 79 Respiratory 18 18 Rate Blood Pressure 157/107 132/80 O2 Sat by Pulse 99 97 Oximetry Medical Decision Making - Medical Decision Making I performed the QuickNote portion of this chart - Imani Crane PA-C Was pt. sent in by a medical professional or institution ([facility], [facility] [employer], urgent care, hospital, or usp...) When possible be specific @ -No Did you speak to anyone other than the patient for history (EMS, parent, family, police, friend...)? What history was obtained from this source @ -No Did you review nursing and triage notes (agree or disagree)? Why? @ -I reviewed and agree with nursing and triage notes Were old charts reviewed (outside hosp., previous admission, EMS record, old EKG, old radiological studies, urgent care reports/EKG's, usp records)? Report findings @ -No old charts were reviewed Differential Diagnosis (chest pain, altered mental status, abdominal pain women, abdominal pain men, vaginal bleeding, weakness, fever, dyspnea, syncope, headache, dizziness, GI bleed, back pain, seizure, CVA, palpatations, mental health)? @ -not applicable EKG interpreted by me (3pts min.). @ -As above X-rays interpreted by me (1pt min.). @ -None done CT interpreted by me (1pt min.). @ -None done U/S interpreted by me (1pt. min.). @ -None done What testing was considered but not performed or refused? (CT, X-rays, U/S, labs)? Why? @ -None What meds were considered but not given or refused? Why? @ -None Did you discuss the management of the patient with other professionals (professionals i.e. Dr., PA, [employer], lab, RT, psych nurse, social security benefits interviewer, sawmill relief worker, teacher, project officer, therapeutic case manager)? Give summary @ -No Was smoking cessation discussed for >3mins.? @ -No Was critical care preformed (if so, how long)? @ -No Were there social determinants of health that impacted care today? How? (Homelessness, low income, unemployed, alcoholism, drug addiction, transportation, low edu. Level, literacy, decrease access to med. care, fpc, rehab)? @ -No Was there de-escalation of care discussed even if they declined (Discuss DNR or withdrawal of care, Hospice)? DNR status @ -No What co-morbidities impacted this encounter? (DM, HTN, Smoking, COPD, CAD, Cancer, CVA, ARF, Chemo, Hep., AIDS, mental health diagnosis, sleep apnea, morbid obesity)? @ -None Was patient admitted / discharged? Hospital course, mention meds given and route, prescriptions, significant lab abnormalities, going to OR and other pertinent info. @ -Patient has 2 puncture wounds in her right buttock from dog bite. It was irrigated thoroughly. Patient placed on prophylactic antibiotics. Tetanus updated. Vaccination status is unknown we discussed option of rabies vaccine and immunoglobulin. Patient declined. Discussed wound care and return parameters in detail. Undiagnosed new problem with uncertain prognosis? @ -No Drug Therapy requiring intensive monitoring for toxicity (Heparin, Nitro, Insulin, Cardizem)? @ -No Were any procedures done? @ -No Diagnosis/symptom? @ -dog bite Acute, or Chronic, or Acute on Chronic? @ -acute Uncomplicated (without systemic symptoms) or Complicated (systemic symptoms)? @ -Uncomplicated Side effects of treatment? @ -No Exacerbation, Progression, or Severe Exacerbation? @ -No Poses a threat to life or bodily function? How? (Chest pain, [place], [place], pneumonia, PE, COPD, DKA, ARF, appy, cholecystitis, CVA, Diverticulitis, Homicidal, Suicidal, threat to staff... and all critical care pts) @ -No Dr. Chris is my attending Disposition Clinical Impression: Dog bite Disposition: HOME SELF-CARE Condition: Good Instructions (If sedation given, give patient instructions): Animal Bite (ED) Additional Instructions: Leave wound uncovered. Keep wound clean and dry. Wash with a mild soap. Take Tylenol or anti-inflammatories such as Motrin for pain. Take antibiotic to prevent infection. Follow-up with primary care provider in one to 2 days. Return to the emergency department experience new, concerning, or worsening symptoms Prescriptions: Doxycycline [Vibramycin] 100 mg PO BID #28 cap Is patient prescribed a controlled substance at d/c from ED?: No Referrals: Chepe Golden MD [STAFF PHYSICIAN] - 1-2 days
[2022-11-18] MEDS ORDERED: DOXYCYCLINE 100 MG CAP PO STA (20:41)
[2022-11-18] MEDS ORDERED: RABIES VACCINE (PCEC) 2.5 UNIT KIT IM ONE (20:47)
[2022-11-18] MEDS ORDERED: IBUPROFEN 400 MG TAB PO STA (21:02)
[2022-11-18] MEDS ORDERED: DIPH,PERTUS(ACELL)TETVAC-LF 0.5 ML VIAL IM ONE (21:02)
[2022-11-18 21:22] VITALS: BP 132/80; PULSE 79
== END 2022-11-18 21:22 | disposition home or self-care (01) ==
LOC: EC 18:59
DX: S31.815A Open bite of right buttock, initial encounter (principal); Z23 Encounter for immunization; Z87.891 Personal history of nicotine dependence; M79.7 Fibromyalgia; Z79.899 Other long term (current) drug therapy; Z88.0 Allergy status to penicillin; Z88.1 Allergy status to other antibiotic agents; Z88.5 Allergy status to narcotic agent; Z88.8 Allergy status to other drugs, medicaments and biological substances; Z91.09 Other allergy status, other than to drugs and biological substances; W54.0XXA Bitten by dog, initial encounter; Y92.480 Sidewalk as the place of occurrence of the external cause
CPT/HCPCS: 90471; 90715; 99282

== ENCOUNTER 2022-12-05 08:02 | Emergency (ER) | payer MEDICARE ==
[2022-12-05 08:46] LABS: Basophils % (A) 1 %; Eosinophils # (A) 0.3 k/uL (0-0.7); Eosinophils % (A) 3 %; HCT 42.3 % (34.0-46.0); HGB 13.6 gm/dL (11.4-16.0); Lymphocytes # (A) 2.6 k/uL (1.0-4.8); Lymphocytes % (A) 28 %; MCH 29.8 pg (25.0-35.0); MCHC 32.2 g/dL (31.0-37.0); MCV 92.7 fL (80.0-100.0); Mean Platelet Volume 7.7; Monocytes # (A) 0.5 k/uL (0-1.0); Monocytes % (A) 6 %; Neutrophils # (A) 5.5 k/uL (1.3-7.7); Neutrophils % (A) 60 %; Platelet Count 272 k/uL (150-450); RBC 4.57 m/uL (3.80-5.40); RDW 12.6 % (11.5-15.5); WBC 9.1 k/uL (3.8-10.6)
--- NOTE | 2022-12-05 08:52 | CT ---
EXAMINATION TYPE: CT brain wo con DATE OF EXAM: 12/05/2022 COMPARISON: None HISTORY: CODE STROKE CT DLP: 1571.[address] of the brain was performed. There is left parietal vasogenic edema with peripheral mass suggested measuring at 3.4 x 2.3 cm. Ther e is midline shift from left to right of 4.4 mm. Impending subfalcine herniation not excluded. There is no evidence for intracranial hemorrhage. There is decreased attenuation about the periventricular white matter and deep white matter of both c erebral hemispheres, compatible with chronic small vessel ischemia. Differential diagnosis does inclu de demyelination. Osseous calvarium is intact. If symptoms persist consider MRI. IMPRESSION: 1. Vasogenic edema left temporal parietal region with the peripheral mass suggested. There is left t o right midline shift noted. Impending subfalcine herniation not excluded.
[2022-12-05] MEDS ORDERED: DEXAMETHASONE SOD PHOSPHATE 10 MG/ML 1 ML VIAL IVP STA (08:55)
--- NOTE | 2022-12-05 09:02 | ED ---
Neuro HPI - General Chief Complaint: Neuro Symptoms/Deficit Stated Complaint: AMS Time Seen by Provider: 12/05/22 08:15 Source: patient Mode of arrival: ambulatory Limitations: no limitations - History of Present Illness Is the patient presenting with stroke symptoms?: Yes Initial Comments: 77-year-old female with reported past medical history of diverticulosis who presents to the emergency department with complaints of speech difficulty. It is reported that the patient went to bed normal yesterday around 11 PM. When she awoke this morning around 6:30 she was having difficulty speaking. She has some mild slurred speech. No history of stroke. Denies any lateralizing symptoms. No upper or lower extremity weakness. She does admit to some visual disturbance however cannot describe to me the impairment. No facial droop. She does not take any blood thinners. She denies headaches. No recent illnesses. No medication changes. She denies chest pain or shortness of breath. No abdominal pain. No vomiting. No recent head injury. No other alleviating, precipitating or modifying factors - Related Data Home Medications: Home Medications Medication Instructions Recorded Confirmed Lactobacillus Acidophilus 2 tab PO DAILY 08/01/17 11/01/20 [Acidophilus] [place]-3 Fatty Acids/Fish Oil [Fish 1 cap PO DAILY 08/01/17 11/01/20 Oil 1,000 mg Softgel] Turmeric Root Extract [Turmeric] 500 mg PO DAILY 08/01/17 11/01/20 Vitamin B Complex 1 cap PO TUFR 08/01/17 11/01/20 Adp 1 tab PO DAILY 10/30/20 11/01/20 Calcium/Magnesium/Zinc 1 each PO DAILY 10/30/20 11/01/20 [Xixclcr-Ryiudgndz-Knjm Tablet] Cranberry Fruit Extract [Cranberry] 500 mg PO TUTH 10/30/20 11/01/20 Tarik 1 tab PO DAILY 10/30/20 11/01/20 Healthy Bones 1 tab PO DAILY 10/30/20 11/01/20 Lung Formula 1 tab PO DAILY 10/30/20 11/01/20 Lung Revive 1 tab PO DAILY 10/30/20 11/01/20 Lysine 500 mg PO DAILY 10/30/20 11/01/20 Magnesium 250 mg PO DAILY 10/30/20 11/01/20 Taurine 1 tab PO DAILY 10/30/20 11/01/20 Thiamine [Vitamin B-1] 50 mg PO DAILY 10/30/20 11/01/20 Tri-Chol 1 tab PO DAILY 10/30/20 11/01/20 Previous Rx's Medication Instructions Recorded Doxycycline [Vibramycin] 100 mg PO BID #28 cap 11/18/22 Allergies/Adverse Reactions: Allergies Allergy/AdvReac Type Severity Reaction Status Date / Time adhesive Allergy Rash/Hives Verified 12/05/22 08:19 ciprofloxacin [From Cipro] Allergy Anaphylaxis Verified 12/05/22 08:19 levofloxacin [From Levaquin] Allergy Anaphylaxis Verified 12/05/22 08:19 moxifloxacin [From Avelox] Allergy Unknown Verified 12/05/22 08:19 Penicillins Allergy Rash/Hives Verified 12/05/22 08:19 albuterol AdvReac Rapid Verified 12/05/22 08:19 Heart Rate morphine AdvReac Nausea & Verified 12/05/22 08:19 Vomiting Review of Systems ROS Statement: Those systems with pertinent positive or pertinent negative responses have been documented in the HPI. ROS Other: All systems not noted in ROS Statement are negative. General Exam Limitations: no limitations General appearance: alert, in no apparent distress Head exam: Present: atraumatic, normocephalic, normal inspection Eye exam: Present: normal appearance, PERRL, EOMI. Absent: scleral icterus, con junctival injection, periorbital swelling ENT exam: Present: normal exam, mucous membranes moist Neck exam: Present: normal inspection. Absent: tenderness, meningismus, lymphadenopathy Respiratory exam: Present: normal lung sounds bilaterally. Absent: respiratory distress, wheezes, rales, rhonchi, stridor Cardiovascular Exam: Present: regular rate, normal rhythm, normal heart sounds. Absent: systolic murmur, diastolic murmur, rubs, gallop, clicks GI/Abdominal exam: Present: soft, normal bowel sounds. Absent: distended, tenderness, guarding, rebound, rigid Extremities exam: Present: normal inspection, full ROM, normal capillary refill. Absent: tenderness, pedal edema, joint swelling, calf tenderness Back exam: Present: normal inspection Neurological exam: Present: alert, oriented X3, CN II-XII intact, other (Patient does have some moderate expressive aphasia. Mild associated dysarthria. Equal chemical laboratory scientist strength. No facial droop) Psychiatric exam: Present: anxious Skin exam: Present: warm, dry, intact, normal color. Absent: rash Stroke MDM - Lab Data Result diagrams: 12/05/22 08:32 12/05/22 08:54 Lab Results 12/05/22 12/05/22 12/05/22 Range/Units 08:32 08:32 08:54 WBC 9.1 (3.8-10.6) k/uL RBC 4.57 (3.80-5.40) m/uL Hgb 13.6 (11.4-16.0) gm/dL Hct 42.3 (34.0-46.0) % MCV 92.7 (80.0-100.0) fL MCH 29.8 (25.0-35.0) pg MCHC 32.2 (31.0-37.0) g/dL RDW 12.6 (11.5-15.5) % Plt Count 272 (150-450) k/uL MPV 7.7 Neutrophils % 60 % Lymphocytes % 28 % Monocytes % 6 % Eosinophils % 3 % Basophils % 1 % Neutrophils # 5.5 (1.3-7.7) k/uL Lymphocytes # 2.6 (1.0-4.8) k/uL Monocytes # 0.5 (0-1.0) k/uL Eosinophils # 0.3 (0-0.7) k/uL Basophils # 0.0 (0-0.2) k/uL PT 10.2 (9.0-12.0) sec INR 1.0 (<1.2) APTT 25.8 (22.0-30.0) sec Sodium 134 L (137-145) mmol/L Potassium 4.2 (3.5-5.1) mmol/L Chloride 101 (98-107) mmol/L Carbon Dioxide 27 (22-30) mmol/L Anion Gap 6 mmol/L BUN 17 (7-17) mg/dL Creatinine 0.70 (0.52-1.04) mg/dL Est GFR (CKD-EPI)AfAm >90 (>60 ml/min/1.73 sqM) Est GFR (CKD-EPI)NonAf 85 (>60 ml/min/1.73 sqM) Glucose 83 (74-99) mg/dL Calcium 9.3 (8.4-10.2) mg/dL Total Bilirubin 0.5 (0.2-1.3) mg/dL AST 30 (14-36) U/L ALT 24 (4-34) U/L Alkaline Phosphatase 57 (38-126) U/L Creatine Kinase 66 (30-135) U/L Total Protein 7.3 (6.3-8.2) g/dL Albumin 3.9 (3.5-5.0) g/dL - Medical Decision Making Was pt. sent in by a medical professional or institution (, PA, PATTERN ROOM ATTENDANT, urgent care, hospital, or longterm...) When possible be specific @ -No Did you speak to anyone other than the patient for history (EMS, parent, family, police, friend...)? What history was obtained from this source @ -I spoke with the patient's for history Did you review nursing and triage notes (agree or disagree)? Why? @ -I reviewed and agree with nursing and triage notes Were old charts reviewed (outside hosp., previous admission, EMS record, old EKG, old radiological studies, urgent care reports/EKG's, longterm records)? Report findings @ -No old charts were reviewed Differential Diagnosis (chest pain, altered mental status, abdominal pain women, abdominal pain men, vaginal bleeding, weakness, fever, dyspnea, syncope, headache, dizziness, GI bleed, back pain, seizure, CVA, palpatations, mental health, musculoskeletal)? @ -Differential CVA Ischemic stroke, hemorrhagic stroke, brain tumor, atypical migraine, Wernicke's encephalopathy, seizure, multiple sclerosis, meningitis, encephalitis, hypoglycemia, Guillain-Gutierrez, electrolytes disturbance, myasthenia gravis.... This is not meant to be an all-inclusive list EKG interpreted by me (3pts min.). @ -Yes and demonstrates since bradycardia with rate of 54. MN interval 154. QRS 94. QTC of 460. No acute ST segment elevations or depressions X-rays interpreted by me (1pt min.). @ -Yes and demonstrates no acute intrathoracic process CT interpreted by me (1pt min.). @ -Yes and demonstrates suspected brain mass on the left with associated vasogenic edema U/S interpreted by me (1pt. min.). @ -None done What testing was considered but not performed or refused? (CT, X-rays, U/S, labs)? Why? @ -None What meds were considered but not given or refused? Why? @ -None Did you discuss the management of the patient with other professionals (professionals i.e. , PA, PATTERN ROOM ATTENDANT, lab, RT, psych nurse, adoption social worker, commercial drone pilot, teacher, toxics program officer, field nurse case manager)? Give summary @ -I spoke with the radiologist in regards to CT read. I spoke with Dr. Malin the neurointensivist. I also spoke with Dr. Hutson at [facility] Was smoking cessation discussed for >3mins.? @ -No Was critical care preformed (if so, how long)? @ -Yes, 40 minutes Were there social determinants of health that impacted care today? How? (Homelessness, low income, unemployed, alcoholism, drug addiction, transportation, low edu. Level, literacy, decrease access to med. care, care home, rehab)? @ -No Was there de-escalation of care discussed even if they declined (Discuss DNR or withdrawal of care, Hospice)? DNR status @ -No What co-morbidities impacted this encounter? (DM, HTN, Smoking, COPD, CAD, Cancer, CVA, ARF, Chemo, Hep., AIDS, mental health diagnosis, sleep apnea, morbid obesity)? @ -None Was patient admitted / discharged? Hospital course, mention meds given and route, prescriptions, significant lab abnormalities, going to OR and other pertinent info. @ -Upon arrival patient was placed into room 15. A thorough history and physical exam was performed. Patient does have expressive aphasia. Code stroke was activated as her last known well was 11 PM last night. She does have an NIH of 2. She is sent over for a CT and CT angiography. CT demonstrates vasogenic edema with underlying suspected mass. I did discuss this with the family. Patient requires transfer to a facility with neurosurgical capabilities. [facility] is contacted. Dr. Franco is accepted neurosurgeon. Dr. Hutson is [facility] administrative physician. COBRA forms are signed. Patient is going to be transferred as a priority one patient via [facility]. Undiagnosed new problem with uncertain prognosis? @ -yes Drug Therapy requiring intensive monitoring for toxicity (Heparin, Nitro, Insulin, Cardizem)? @ -No Were any procedures done? @ -No Diagnosis/symptom? @ -Acute expressive aphasia, suspected brain mass with vasogenic edema Acute, or Chronic, or Acute on Chronic? @ -Acute Uncomplicated (without systemic symptoms) or Complicated (systemic symptoms)? @ -Complicated Side effects of treatment? @ -No Exacerbation, Progression, or Severe Exacerbation? @ -No Poses a threat to life or bodily function? How? (Chest pain, USA, CA, pneumonia, PE, COPD, DKA, ARF, appy, cholecystitis, CVA, Diverticulitis, Homicidal, Suicidal, threat to staff... and all critical care pts) @ -yes - patient has brain mass with midline shift and vasogenic edema Past Medical History Past Medical History: Fibromyalgia Additional Past Medical History / Comment(s): hx. diverticulitis, bronchiectesis, pseudomonas aeruginosa, osteoporosis History of Any Multi-Drug Resistant Organisms: None Reported Past Surgical History: Bladder Surgery, Bowel Resection Additional Past Surgical History / Comment(s): bladder suspension, colonoscopy Past Anesthesia/Blood Transfusion Reactions: No Reported Reaction Past Psychological History: No Psychological Hx Reported Smoking Status: Former smoker Past Alcohol Use History: None Reported Past Drug Use History: None Reported - Past Family History Mother Family Medical History: Cancer, Hypertension Additional Family Medical History / Comment(s): colon cancer Father Family Medical History: Congestive Heart Failure (CHF) Sister(s) Family Medical History: Hypertension Additional Family Medical History / Comment(s): RA Son(s) Family Medical History: No Reported History Daughter(s) Family Medical History: No Reported History Course Vital Signs 12/05/22 08:14 Temperature 97.9 F Pulse Rate 62 Respiratory 18 Rate Blood Pressure 152/85 O2 Sat by Pulse 98 Oximetry - Reevaluation(s) Reevaluation #1: 12/05/22 09:01 family wishes to go to [facility] - calling now for transfer Disposition Clinical Impression: Expressive aphasia, Vasogenic brain edema, Brain mass Disposition: OTHER INSTITUTION NOT DEFINED Condition: Serious Is patient prescribed a controlled substance at d/c from ED?: No Referrals: Chepe Golden MD [Primary Care Provider] - 1-2 days Time of Disposition: 09:12 - Out of Hospital Transfer - Req. Specs Out of Hospital Transfer - Requested Specifics: Other Emergency Center ([facility])
[2022-12-05 09:15] LABS: ALT 24 U/L (4-34); AST 30 U/L (14-36); African American GFR (CKD) >90 (>60 ml/min/1.73 sqM); Albumin 3.9 g/dL (3.5-5.0); Alkaline Phosphatase 57 U/L (38-126); Anion Gap 6 mmol/L; Blood Urea Nitrogen 17 mg/dL (7-17); Calcium 9.3 mg/dL (8.4-10.2); Carbon Dioxide 27 mmol/L (22-30); Chloride 101 mmol/L (98-107); Creatine Kinase 66 U/L (30-135); Glucose 83 mg/dL (74-99); Non-African American GFR(CKD) 85 (>60 ml/min/1.73 sqM); Potassium 4.2 mmol/L (3.5-5.1); Sodium 134 mmol/L (137-145); Total Bilirubin 0.5 mg/dL (0.2-1.3); Total Protein 7.3 g/dL (6.3-8.2)
[2022-12-05 09:15] LABS: Partial Thromboplastin Time 25.8 sec (22.0-30.0); Prothrombin Time 10.2 sec (9.0-12.0)
--- NOTE | 2022-12-05 09:26 | XR ---
EXAMINATION TYPE: XR chest 2V DATE OF EXAM: 12/05/2022 COMPARISON: 08/01/2017 HISTORY: 77-year-old female confusion, altered mental status TECHNIQUE: PA and lateral views FINDINGS: Heart upper limits of normal in size. Aorta and pulmonary vasculature within normal limits. Mild inte rstitial prominence is unchanged. There is some patchy opacity along the right heart margin but no ot her consolidation or pleural effusion seen. IMPRESSION: COPD. Suspect early developing infiltrate/pneumonia right middle lobe.
--- NOTE | 2022-12-05 09:59 | CT ---
EXAMINATION TYPE: CT angio head neck DATE OF EXAM: 12/05/2022 COMPARISON: None HISTORY: CODE STROKE CT DLP: 1571.6 mGycm CONTRAST: Performed without and with IV Contrast, patient injected with 65 ml mL of Isovue 370. Combination Contrast CTA cervical carotids and [place] CTA cervical carotids with 3-D recons truction Contrast CTA of the cervical carotids was performed 3-D reconstruction imaging obtained at a separate workstation. Right carotid system: Mild plaque is seen of the right common carotid artery. There is mild plaque a lso noted at the carotid bulb and proximal ICA. No significant diameter reduction. ECA is patent. Right vertebral artery appears unremarkable. Left carotid system: Mild plaque is seen of the left common carotid artery. There is mild plaque als o noted at the carotid bulb and proximal ICA. No significant diameter reduction. ECA is patent. Lef t vertebral artery appears unremarkable. There is pleural-based nodularity right upper lobe posteriorly as well as a parenchymal nodule measur ing 6 mm. IMPRESSION: 1. No significant diameter reduction to account for the patient's symptoms. 2. Pulmonary nodule right upper lobe as well as nodular pleural thickening. Dedicated CT of the chest is recommended for further evaluation. CTA [place] with 3-D reconstruction Contrast CTA of the [place] was performed 3-D reconstruction imaging obtained at a separate workstation. CT of the brain demonstrates enhancing mass anterior left middle cranial fossa measurin g 3.2 x 2.4 cm which could reflect a solitary metastatic lesion, primary glioma with additional possi bility being that of a meningioma. No additional lesions are seen. Evidence of left-sided vasogenic e pardeep with left to right midline shift as described on CT of the brain. Vertebrobasilar system as well as intracranial portions of the internal carotid arteries and their ma guillermo tributaries are patent. I do not see evidence for sizable aneurysm or vascular malformation. Pl ease note MRI provides greater sensitivity and specificity. Visualized brain appears grossly unremar kable. IMPRESSION: 1. No intracranial vascular abnormalities seen. 2. Enhancing mass left anterior middle cranial fossa and its periphery with differential diagnostic p ossibilities discussed above. Vasogenic edema with [id number] shift as discussed on CT brain. NASCET criteria was used in interpretation of this exam?
[2022-12-05 15:57] VITALS: BP 167/80; PULSE 84; RESP 18; TEMP 97.9
== END 2022-12-05 09:43 | disposition other institution (70) ==
LOC: EC 08:02
DX: R47.01 Aphasia (principal); G93.6 Cerebral edema; R00.1 Bradycardia, unspecified; Z91.09 Other allergy status, other than to drugs and biological substances; Z88.1 Allergy status to other antibiotic agents; Z88.0 Allergy status to penicillin; Z88.5 Allergy status to narcotic agent; Z88.8 Allergy status to other drugs, medicaments and biological substances; Z88.6 Allergy status to analgesic agent; Z87.891 Personal history of nicotine dependence
CPT/HCPCS: 99291; 96374; 36415; 93005; 80053; 82550; 84484; 85025; 85610; 85730; 71046; 70496; 70450; 70498; J1100; Q9967

== ENCOUNTER → 2022-12-23 | Outpatient (CLI) | payer MEDICARE ==
[2022-12-23 16:25] LABS: BUN/Creat Ratio 28.33 Ratio (12.00-20.00); Calcium 9.1 mg/dL (8.7-10.3); Chloride 100 mmol/L (96-109); Glucose 93 mg/dL (70-110); Potassium 4.9 mmol/L (3.5-5.5); Sodium 136 mmol/L (135-145)
== END | disposition home or self-care (01) ==
LOC: LABWHC1 09:00
PROVIDERS: ATTEND Neurological Surgery
DX: E87.1 Hypo-osmolality and hyponatremia (principal)
CPT/HCPCS: 36415; 80048

== ENCOUNTER → 2022-12-30 | Outpatient (CLI) | payer MEDICARE ==
[2022-12-30 11:26] LABS: Basophils # (A) 0.04 X 10*3/uL (0.00-0.10); Basophils % (A) 0.6 %; Eosinophils # (A) 0.25 X 10*3/uL (0.04-0.35); Eosinophils % (A) 3.9 %; HCT 37.1 % (37.2-46.3); HGB 11.8 d/dL (12.0-15.0); Lymphocytes # (A) 1.54 X 10*3/uL (0.90-5.00); Lymphocytes % (A) 23.7 %; MCH 30.3 pg (27.0-32.0); MCHC 31.8 d/dL (32.0-37.0); MCV 95.4 FL (80.0-97.0); Mean Platelet Volume 9.5 FL (9.5-12.2); Monocytes # (A) 0.66 X 10*3/uL (0.20-1.00); Monocytes % (A) 10.2 %; NRBC Per 100 WBC 0 X 10*3/uL (0.00-0.01); Neutrophils # (A) 3.98 X 10*3/uL (1.80-7.70); Neutrophils % (A) 61.3 %; Platelet Count 221 X 10*3/uL (140-440); RBC 3.89 X 10*6/uL (4.10-5.20); RDW 13.6 % (11.5-14.5); WBC 6.49 X 10*3/uL (4.50-10.00)
[2022-12-30 11:31] LABS: Albumin 3.9 d/dL (3.8-4.9); BUN/Creat Ratio 15.83 Ratio (12.00-20.00); Blood Urea Nitrogen 9.5 mg/dL (9.0-27.0); Calcium 9.4 mg/dL (8.7-10.3); Carbon Dioxide 27.4 mmol/L (21.6-31.8); Chloride 103 mmol/L (96-109); Chol/HDL Ratio 3.13 Ratio; Glucose 90 mg/dL (70-110); LDL Cholesterol,Calculated 144.1 mg/dL (0.0-131.0); Phosphorus 3.6 mg/dL (2.4-5.1); Potassium 3.9 mmol/L (3.5-5.5); Sodium 141 mmol/L (135-145); VLDL Calculation 19.24 mg/dL (5.00-40.00)
[2022-12-30 16:46] LABS: Appearance,Urine Cloudy (Clear); Bacteria,Urine Occasional /hpf; Bilirubin,Urine Negative (Negative); Blood,Urine Trace (Negative); Color,Urine Colorless; Glucose,Urine (UA) Negative (Negative); Ketones,Urine Negative (Negative); Leukocyte Esterase,Urine Large (Negative); Mucus,Urine Rare /hpf; Nitrite,Urine Positive (Negative); Protein,Urine Negative (Negative); RBC,Urine 3 /hpf (0-5); Specific Gravity,Urine 1.009 (1.001-1.035); Squamous Epithelial Cell,Urine 1 /hpf (0-4); Urobilinogen,Urine <2.0 mg/dL (<2.0); WBC,Urine >182 /hpf (0-5)
== END | disposition home or self-care (01) ==
LOC: LABWHC1 07:56
PROVIDERS: ATTEND Family Medicine
DX: E78.00 Pure hypercholesterolemia, unspecified (principal); N18.2 Chronic kidney disease, stage 2 (mild); E55.9 Vitamin D deficiency, unspecified; R53.83 Other fatigue
CPT/HCPCS: 36415; 80061; 80069; 81001; 82306; 84443; 85025; 87086

== ENCOUNTER → 2023-09-10 | Outpatient (CLI) | payer MEDICARE ==
--- NOTE | 2023-09-11 11:37 | BD ---
EXAMINATION TYPE: Axial Bone Density DATE OF EXAM: 09/10/2023 CLINICAL HISTORY: 78 years old Female. ICD-10 CODE: M81.0 OSTEOPOROSIS Height: 66 Weight: 116.9 FRAX RISK QUESTIONS: Alcohol (3 or more units per day): no Family History (Parent hip fracture): yes Glucocorticoids (More than 3mos): no (Ex: prednisone, prednisolone, methylprednisolone, dexamethasone, and hydrocortisone). History of Fracture in Adulthood: no Secondary Osteoporosis: 1. Type 1 Diabetes: no 2. Hyperthyroidism: no 3. Menopause before 45: no 4. Malnutrition: no 5. Chronic liver disease: no Rheumatoid Arthritis: no Current Tobacco Use: no RISK FACTORS HISTORY OF: Surgery to Spine/Hip(right/left)/Wrist (right/left): no EXAM MEASUREMENTS: Bone mineral densitometry was performed using the [employer] System. Bone mineral density as measured about the Lumbar spine is: ----- L1-L4(G/cm2): 0.724 T Score Values are as follows: ----- L1: -3.7 ----- L2: -4.4 ----- L3: -3.9 ----- L4: -3.4 ----- L1-L4: -3.8 Z Score Values are as follows: ----- L1: -1.5 ----- L2: -2.2 ----- L3: -1.8 ----- L4: -1.3 ----- L1-L4: -1.6 Bone mineral density has: decreased -6.6 % since study of: 09.07.2020 Bone mineral density about the R hip (g/cm2): 0.602 Bone mineral density about the L hip (g/cm2): 0.572 T Score values are as follows: -----R Neck: -3.1 -----L Neck: -3.3 -----R Total: -3.2 -----L Total: -3.5 Z Score values are as follows: -----R Neck: -0.8 -----L Neck: -1.0 -----R Total: -1.1 -----L Total: -1.4 Bone mineral density has: decreased -9.6 % since study of: 6.17.2020 FRAX%s: The graph provided illustrates a 44.3% chance for a major osteoporotic fx and a 35.7% chance for the hips probability for fx in 10 years time. IMPRESSION: Osteoporosis (T Score less than -2.5). There is increased fracture risk and therapy is usually indicated based on age. Re-Screen 1-2 years. NOTE: T-SCORE=SD OF THE YOUNG ADULT MEAN.
--- NOTE | 2023-09-15 08:09 | MM ---
Reason for Exam: Screening (asymptomatic). Last mammogram was performed 3 year(s) and 0 month(s) ago. Patient History: Menarche at age 16. First Full-Term at age 34. Late child-bearing (after 30). Postmenopausal. Maternal cousin had breast cancer. Risk Values: Symone 5 year model risk: 2.2%. NCI Lifetime model risk: 4.5%. Prior Study Comparison: 12/29/2015 Bilateral Screening Mammogram, [facility]. 07/27/2018 Bilateral Screening Mammogram, [facility]. 09/07/2020 Bilateral Screening Mammogram, [facility]. Tissue Density: The breasts are heterogeneously dense, which may obscure small masses. Findings: Analyzed By CAD. There is no suspicious group of microcalcifications or new suspicious mass in either breast. Overall Assessment: Benign, BI-RAD 2 Management: Screening Mammogram of both breasts in 1 year. . Patient should continue monthly self-breast exams. A clinical breast exam by your physician is recommended on an annual basis. This exam should not preclude additional follow-up of suspicious palpable abnormalities. Note on Symone scores and lifetime risk: 1. A Symone score greater than 3% is considered moderate risk. If this is the case, consider specialist referral to assess eligibility for a risk reducing agent. 2. If overall lifetime risk for the development of breast cancer is 20% or higher, the patient may qualify for future screening with alternating mammogram and breast MRI. Electronically signed and approved by: Yoav Mcnair M.D. Radiologis
== END | disposition home or self-care (01) ==
LOC: RADMAMWWP 15:25
PROVIDERS: ATTEND Family Medicine
DX: Z12.31 Encounter for screening mammogram for malignant neoplasm of breast (principal); M81.0 Age-related osteoporosis without current pathological fracture; R92.333 Mammographic heterogeneous density, bilateral breasts; Z78.0 Asymptomatic menopausal state; Z80.3 Family history of malignant neoplasm of breast; M81.8 Other osteoporosis without current pathological fracture
CPT/HCPCS: 77063; 77067; 77080